=== PATIENT | female | born 1980 | race Caucasian/White ===

== ENCOUNTER 2019-05-13 08:01 | Inpatient (IN) | payer BC ==
[2019-05-13] MEDS ORDERED: Lactated Ringers 1000 ML Bag* 1,000 ML IV ONE ×2 (08:34→12:20)
[2019-05-13] MEDS ORDERED: Penicillin G Potassium IV* 5,000,000 UNITS in NS 0.9% 100 ML* 100 ML IVPB ONE (08:34)
[2019-05-13 08:58] LABS: ABS Basophils 0.1 10^3/ul (0-0.2); ABS Eosinophils 0.1 10^3/ul (0-0.6); ABS Lymphocytes 2.6 10^3/ul (1.0-4.8); ABS Monocytes 0.8 10^3/ul (0-0.8); ABS Neutrophils 7.4 10^3/ul (1.5-7.7); Eosinophil % 0.8 %; Hematocrit 37 % (35-47); Hemoglobin 12.3 g/dL (12.0-16.0); Lymphocyte % 24.1 %; Mean Corpuscular HGB Conc 33 g/dL (31-36); Mean Corpuscular Hemoglobin 26 pg (27-31); Mean Corpuscular Volume 78 fL (80-97); Platelet Count 189 10^3/uL (150-450); Red Blood Count 4.73 10^6 /uL (3.70-4.87); Red Cell Distribution Width 14 % (10-15)
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
[2019-05-13 09:14] LABS: Albumin 3.9 g/dL (3.2-5.2); Albumin/Globulin Ratio 1.3 (1-3); BUN/Creatinine Ratio 15.1 (8-20); Calcium 8.9 mg/dL (8.6-10.3); EGFR African American 107.4 (>60); EGFR Non-African American 88.8 (>60); Globulin 2.9 g/dL (2-4); Potassium 4.1 mmol/L (3.5-5.0); Total Bilirubin 0.3 mg/dL (0.2-1.0); Total Protein 6.8 g/dL (6.4-8.9)
[2019-05-13 09:24] LABS: Urine Benzodiazepine Screen None Detected (None Detect); Urine Opiates Screen None Detected (None Detect)
--- NOTE | 2019-05-13 10:57 | PN ---
Progress Note - Progress Note Date of Service: 05/13/19 Note: S: Pt in side lie position. Breathing well with UCs with bedside support from program paraprofessional, FOB, RNs and CNM. Using nitrous with UCs with moderate relief O: BP 126/71 HR 78 FHT 130bpm. Moderate variability. No decels through UCs by intermittent doptones UCs q 4-5 min VE 7cm/100%/vtx -1, slow leak of clear fluid noted A: IUP at 39-1/7 in labor No evidence of metabolic acidemia GBS +, received first dose of abx prophylaxis P: Close monitoring of maternal/ status. Continue bedside support. Anticipate trial of pushing soon.
[2019-05-13] MEDS ORDERED: fentaNYL* 50 MCG/ML 2 ML VIAL (100 MCG VIAL) ONE (11:39)
[2019-05-13] MEDS ORDERED: Bupivacaine 0.25% SDV PF* 10 ML VIAL INJ ONE (11:39)
[2019-05-13] MEDS ORDERED: Phenylephrine 40 MCG/ML SYRINGE IV PUSH PRN ×2 (12:20)
[2019-05-13] MEDS ORDERED: Famotidine TAB* 20 MG PO PRN (12:20)
[2019-05-13] MEDS ORDERED: EPHEDrine (Pressors)* 50 MG/ML VIAL IV PUSH PRN ×2 (12:20)
[2019-05-13] MEDS ORDERED: Sodium Citrate/Citric Acid* 15 ML UDC PO PRN (12:20)
--- NOTE | 2019-05-13 12:55 | PN ---
Progress Note - Progress Note Date of Service: 05/13/19 Note: S: Pt comfortable s/p ITF placement. She experienced gross rupture to meconium stained fluid O: VSS, afebrile FHT: 130bpm. Moderate variability. +Accels. Isolated decel down to 80bpm x 5 min following ITF placement and SROM, recovered and no further decels noted UCs q 2-3 VE 7-8cm/100%/vtx 0, meconium stained fluid A: IUP at 39-1/7 in labor No evidence of metabolic acidemia since isolated decel recovered GBS +, receiving prophylaxis in labor P: Enc rest. Anticipate trial of pushing soon
[2019-05-13] MEDS ORDERED: Lactated Ringers 1000 ML Bag* 1,000 ML IV SCH ×2 (13:00→15:00)
[2019-05-13] MEDS ORDERED: OBEPIDURAL* 250 ML EPIDURAL SCH (13:00)
[2019-05-13] MEDS ORDERED: Penicillin G Potassium IV* 2,500,000 UNITS in NS 0.9% 100 ML* 100 ML IVPB SCH (14:00)
[2019-05-13] MEDS ORDERED: Oxytocin in LR* 20 UNITS/1,000 ML BAG IVPB ONE (14:18)
[2019-05-13] MEDS ORDERED: Glycerin ADULT SUPP PR PRN (14:33)
[2019-05-13] MEDS ORDERED: Acetaminophen TAB* 325 MG PO PRN (14:33)
--- NOTE | 2019-05-13 14:55 | PROCNOTE ---
[facility]: Delivery Note - Delivery A Date of : 05/13/19 Time of : 13:56 [place] Sex: Female - "Joanna" Score 1 Minute: 5 Score 5 Minutes: 7 - 9 at 10 min Gestational Age in Weeks and Days at Delivery: 39 Weeks and 1 Days Delivery Method: Spontaneous Vaginal Labor: Spontaneous Did Patient attempt ?: N/A, No Previous Amniotic Fluid: Meconium Estimated Blood Loss: 400 Anesthesia/Analgesia: ITF/Spinal for Labor - placed by Dr. Muñoz, Nitrous-Labor Delivered By: Connie Centeno - Nursery Level of Nursery: Regular/Bedside - Perineum Perineal Injury: 1st Degree - repaired with 3-0 Rapide under local infiltration 1% lidocaine. Pt tolerated well Perineal Repair: By Delivering Practioner - Events Delivery Events of Note: Pitocin Only After Delivery - Additional Delivery Notes Additional Delivery Notes: Pt admitted in labor with expected progression to complete. Length of active phase 6 ours, 36 min. Pushed x 17 min. liveborn female. Slow, controlled delivery of head. OA to REID. Tight nuchal cord noted. Unable to reduce. Tight transverse shoulders delivered in [place] with strong maternal push. somersaulted through cord. [place] initially stunned. Cord milked, clamped x 2 and cut. to warmer for evaluation by special care nurse. Apgars 5/7/9. Spontaneous delivery intact placenta. Trailing membranes teased out with a [place] clamp. Appeared complete. Fundus firm to massage. Persistent trickle of bleeding persisted. IV pitocin infusing. Bleeding resolved. Repair as above. EBL 400mL. At time of note mother and in stable condition. Planning to breast feed.
[2019-05-13] MEDS ORDERED: Oxytocin in LR* 20 UNITS/1,000 ML BAG IVPB SCH (15:00)
[2019-05-13] MEDS: Citalopram TAB* 10 MG PO SCH (15:15)
[2019-05-13] MEDS: Ibuprofen TAB* 600 MG PO SCH ×2 (18:04→18:27)
[2019-05-13] MEDS: Dibucaine 1% 28.35 GM TUBE PR PRN (18:04)
[2019-05-13] MEDS: Witch Hazel PAD* JAR TOPICAL PRN (18:04)
[2019-05-13] MEDS: Docusate CAP* 100 MG PO SCH (20:23)
[2019-05-14] MEDS: Ibuprofen TAB* 600 MG PO SCH ×4 (00:48→17:04)
[2019-05-14] MEDS: Citalopram TAB* 10 MG PO SCH (08:04)
[2019-05-14] MEDS: Docusate CAP* 100 MG PO SCH ×3 (08:06→20:56)
[2019-05-14 08:44] LABS: ABS Basophils 0.1 10^3/ul (0-0.2); ABS Lymphocytes 2.2 10^3/ul (1.0-4.8); ABS Monocytes 0.9 10^3/ul (0-0.8); ABS Neutrophils 11.1 10^3/ul (1.5-7.7); Eosinophil % 0.3 %; Hematocrit 28 % (35-47); Hemoglobin 9.3 g/dL (12.0-16.0); Lymphocyte % 15.6 %; Mean Corpuscular HGB Conc 33 g/dL (31-36); Mean Corpuscular Hemoglobin 26 pg (27-31); Mean Corpuscular Volume 78 fL (80-97); Platelet Count 152 10^3/uL (150-450); Red Blood Count 3.56 10^6 /uL (3.70-4.87); Red Cell Distribution Width 14 % (10-15); White Blood Count 14.3 10^3/uL (3.5-10.8)
[2019-05-14] MEDS: Ferrous Gluconate TAB* 324 MG TAB PO SCH ×2 (08:58→20:56)
--- NOTE | 2019-05-14 15:29 | PTEDU ---
Patient Name: ALEJANDRA AGRAWAL TANJAALEJANDRA selected video: Follow Me Mum: [facility] to Successful to view on 05/14/2019 at 3:27:32 PM [id number]
[2019-05-14] MEDS: Dibucaine 1% 28.35 GM TUBE PR PRN (17:04)
[2019-05-14] MEDS: Witch Hazel PAD* JAR TOPICAL PRN (17:04)
[2019-05-15] MEDS: Ibuprofen TAB* 600 MG PO SCH ×4 (00:14→15:52)
[2019-05-15] MEDS: Simethicone TAB* 80 MG TAB.CHEW PO SCH (08:11)
[2019-05-15] MEDS: Docusate CAP* 100 MG PO SCH ×2 (08:22→14:14)
[2019-05-15] MEDS: Ferrous Gluconate TAB* 324 MG TAB PO SCH (08:22)
[2019-05-15] MEDS: Citalopram TAB* 10 MG PO SCH (08:22)
[2019-05-15 08:56] VITALS: BP 139/67
[2019-05-15] MEDS ORDERED: Influenza VAC *QUAD* 2019-20* 0.5 ML SYRINGE IM ONE (09:00)
== END 2019-05-15 17:40 | disposition home or self-care (01) | DRG 560 ==
LOC: MCHOBOUT 08:01 → MCHOB 08:42
PROVIDERS: ADMIT Midwife; ATTEND Midwife
PROC: 10E0XZZ Delivery of Products of Conception, External Approach (ICD-10-PCS; principal; 2019-05-13)
PROC: 0HQ9XZZ Repair Perineum Skin, External Approach (ICD-10-PCS; 2019-05-13)
DX: O99.824 Streptococcus B carrier state complicating childbirth (principal); Z37.0 Single live birth; O70.0 First degree perineal laceration during delivery; O77.0 Labor and delivery complicated by meconium in amniotic fluid; O99.344 Other mental disorders complicating childbirth; F41.8 Other specified anxiety disorders; O69.81X0 Labor and delivery complicated by cord around neck, without compression, not applicable or unspecified; O90.81 Anemia of the puerperium; D64.9 Anemia, unspecified; Z3A.39 39 weeks gestation of pregnancy
CPT/HCPCS: 36415; 80053; 80307; 84550; 85025; 86850; 86900; 86901; 90686; A9270-GY; J2540; J3010; J3490

== ENCOUNTER 2019-05-19 20:52 | Emergency (ER) | payer BC ==
[2019-05-19] MEDS ORDERED: NS 0.9% 1000 ML** 1,000 ML IV ONE ×2 (21:27→22:23)
[2019-05-19 21:47] LABS: ABS Basophils 0.1 10^3/ul (0-0.2); ABS Eosinophils 0.4 10^3/ul (0-0.6); ABS Lymphocytes 2.3 10^3/ul (1.0-4.8); ABS Monocytes 0.8 10^3/ul (0-0.8); ABS Neutrophils 8.1 10^3/ul (1.5-7.7); Eosinophil % 3.5 %; Hematocrit 33 % (35-47); Hemoglobin 10.6 g/dL (12.0-16.0); Lymphocyte % 19.5 %; Mean Corpuscular HGB Conc 32 g/dL (31-36); Mean Corpuscular Hemoglobin 26 pg (27-31); Mean Corpuscular Volume 80 fL (80-97); Mean Platelet Volume 8.6 fL (7.4-10.4); Nucleated Red Blood Cells % 0.1; Platelet Count 318 10^3/uL (150-450); Red Blood Count 4.11 10^6 /uL (3.70-4.87); Red Cell Distribution Width 15 % (10-15); White Blood Count 11.7 10^3/uL (3.5-10.8)
[2019-05-19 21:57] LABS: Activated Partial Thrombo Time 34.6 seconds (26.0-38.0); INR 0.91 (0.82-1.09)
[2019-05-19 22:05] LABS: Albumin 3.5 g/dL (3.2-5.2); Albumin/Globulin Ratio 1.2 (1-3); BUN/Creatinine Ratio 27.9 (8-20); EGFR African American 132.1 (>60); EGFR Non-African American 109.2 (>60); Globulin 2.9 g/dL (2-4); Potassium 3.9 mmol/L (3.5-5.0); Total Bilirubin 0.2 mg/dL (0.2-1.0); Total Protein 6.4 g/dL (6.4-8.9)
--- NOTE | 2019-05-19 22:29 | ED ---
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 She notes that she gave 2 days ago and began experiencing abd pain with passage of small blood clots. Today she continued to have abd pain but was passing larger blood clots. She took 400 mg of ibuprofen earlier today. She rates her current pain severity a 3/10. No aggravating or alleviating factors noted. She also denies fever, vomiting, nausea, dizziness, or lightheadedness. - History of Current Complaint Chief Complaint: EDVaginalBleeding Time Seen by Provider: 05/19/19 21:26 Stated Complaint: "PASSING BLOOD CLOTS POST DELIVERY PER PT" Hx Obtained From: Patient Onset/Duration: Started Days Ago Timing: Constant, Lasting Days Severity: Mild Current Severity: Mild Pain Intensity: 3 Location of Pain: Diffuse Associated Signs and Symptoms: Positive: Abdominal Pain, Other: - neg - dizziness, lightheadedness. Negative: Nausea, Vomiting, Fever Additional Signs & Symptoms: Positive: Vaginal Bleeding - Allergy/Home Medications Allergies/Adverse Reactions: Allergies Allergy/AdvReac Type Severity Reaction Status Date / Time No Known Allergies Allergy Verified 05/19/19 20:56 PMH/Surg Hx/FS Hx/Imm Hx Psychiatric History: Reports: Hx Anxiety - taking medication, Hx Depression - taking medication Denies: Hx Attention Deficit Hyperactivity Disorder, Hx Eating Disorder, Hx Panic Disorder, Hx Post Traumatic Stress Disorder, Hx Inpatient Treatment, Hx Community Mental Health Tx, Hx Schizophrenia, Hx Bipolar Disorder, Hx Suicide Attempt, Hx of Violent Episodes Against Others, Hx Substance Abuse, Other Psychiatric Issues/Disorders Infectious Disease History: Yes Infectious Disease History: Denies: Traveled Outside the [place] in Last 30 Days - Social History Alcohol Use: Rare Substance Use Type: Reports: None Smoking Status (MU): Never Smoked Tobacco Review of Systems - ROS Summary Review of Systems Summary: Home Medications Medication Instructions Recorded Confirmed Type Vitamin TAB* 1 tab PO DAILY 05/13/19 05/13/19 History Citalopram TAB* [Celexa TAB*] 30 mg PO DAILY tab 05/15/19 Rx Docusate CAP* [Colace Cap*] 100 mg PO TID cap 05/15/19 Rx Ferrous Gluconate TAB* [Fergon 324 mg PO DAILY #30 tab 05/15/19 Rx TAB*] Ibuprofen TAB* [Motrin TAB* 600 MG] 600 mg PO Q6H tab 05/15/19 Rx Positive: Fever Positive: Abdominal Pain. Negative: Vomiting, Nausea Positive: other - pos - vaginal bleeding Neurological: Other - neg - dizziness, lightheadedness All Other Systems Reviewed And Are Negative: Yes Physical Exam - Summary Physical Exam Summary: General: Well-developed, Well-nourished female. No acute distress. HEENT: Normocephalic, Atraumatic. Eyes: Conjuctiva normal, PERRL. Ears: TMs within normal limits. Nares: (-) discharge, (-) erythema. Oropharynx: Clear, mucous membranes moist, (-) exudates. Neck: Soft, FROM, (-) lymphadenopathy, (-) thyromegaly, (-) JVD. Cardiovascular: Normal sinus rhythm, (-) murmur. Lungs: Clear to auscultation bilaterally (-) wheezes, (-) rales, (-) rhonchi. Abdomen: Soft, non-tender, non-distended, (-) organomegaly, normal bowel sounds. Back: (-) CVA tenderness Extremities: No edema. Skin: Warm, dry, (-) rash. Neuro: Alert and oriented x3, no focal deficits. Psychiatric: Mood normal, affect normal. Triage Information Reviewed: Yes Vital Signs On Initial Exam: Initial Vitals Temp Pulse Resp BP Pulse Ox 98.8 F 85 15 136/102 98 05/19/19 20:55 05/19/19 20:55 05/19/19 20:55 05/19/19 20:55 05/19/19 20:55 Vital Signs Reviewed: Yes Procedures - Sedation Patient Received Moderate/Deep Sedation with Procedure: No Diagnostics - Vital Signs Vital Signs Temp Pulse Resp BP Pulse Ox 05/19/19 20:55 98.8 F 85 15 136/102 98 - Laboratory Lab Results: Lab Results 05/19/19 05/19/19 05/19/19 Range/Units 21:38 21:38 21:38 WBC 11.7 H (3.5-10.8) 10^3/uL RBC 4.11 (3.70-4.87) 10^6 /uL Hgb 10.6 L (12.0-16.0) g/dL Hct 33 L (35-47) % MCV 80 (80-97) fL MCH 26 L (27-31) pg MCHC 32 (31-36) g/dL RDW 15 (10-15) % Plt Count 318 (150-450) 10^3/uL MPV 8.6 (7.4-10.4) fL Neut % (Auto) 69.4 % Lymph % (Auto) 19.5 % [place] % (Auto) 7.0 % Eos % (Auto) 3.5 % Baso % (Auto) 0.6 % Absolute Neuts (auto) 8.1 H (1.5-7.7) 10^3/ul Absolute Lymphs (auto) 2.3 (1.0-4.8) 10^3/ul Absolute Monos (auto) 0.8 (0-0.8) 10^3/ul Absolute Eos (auto) 0.4 (0-0.6) 10^3/ul Absolute Basos (auto) 0.1 (0-0.2) 10^3/ul Absolute Nucleated RBC 0.0 10^3/ul Nucleated RBC % 0.1 INR (Anticoag Therapy) 0.91 (0.82-1.09) APTT 34.6 (26.0-38.0) seconds Sodium 139 (135-145) mmol/L Potassium 3.9 (3.5-5.0) mmol/L Chloride 107 (101-111) mmol/L Carbon Dioxide 24 (22-32) mmol/L Anion Gap 8 (2-11) mmol/L BUN 17 (6-24) mg/dL Creatinine 0.61 (0.51-0.95) mg/dL Est GFR ( Amer) 132.1 (>60) Est GFR (Non-Af Amer) 109.2 (>60) BUN/Creatinine Ratio 27.9 H (8-20) Glucose 129 H (70-100) mg/dL Lactic Acid (0.5-2.0) mmol/L Calcium 9.0 (8.6-10.3) mg/dL Total Bilirubin 0.20 (0.2-1.0) mg/dL AST 18 (13-39) U/L ALT 26 (7-52) U/L Alkaline Phosphatase 89 (34-104) U/L Total Protein 6.4 (6.4-8.9) g/dL Albumin 3.5 (3.2-5.2) g/dL Globulin 2.9 (2-4) g/dL Albumin/Globulin Ratio 1.2 (1-3) 05/19/19 Range/Units 21:38 WBC (3.5-10.8) 10^3/uL RBC (3.70-4.87) 10^6 /uL Hgb (12.0-16.0) g/dL Hct (35-47) % MCV (80-97) fL MCH (27-31) pg MCHC (31-36) g/dL RDW (10-15) % Plt Count (150-450) 10^3/uL MPV (7.4-10.4) fL Neut % (Auto) % Lymph % (Auto) % [place] % (Auto) % Eos % (Auto) % Baso % (Auto) % Absolute Neuts (auto) (1.5-7.7) 10^3/ul Absolute Lymphs (auto) (1.0-4.8) 10^3/ul Absolute Monos (auto) (0-0.8) 10^3/ul Absolute Eos (auto) (0-0.6) 10^3/ul Absolute Basos (auto) (0-0.2) 10^3/ul Absolute Nucleated RBC 10^3/ul Nucleated RBC % INR (Anticoag Therapy) (0.82-1.09) APTT (26.0-38.0) seconds Sodium (135-145) mmol/L Potassium (3.5-5.0) mmol/L Chloride (101-111) mmol/L Carbon Dioxide (22-32) mmol/L Anion Gap (2-11) mmol/L BUN (6-24) mg/dL Creatinine (0.51-0.95) mg/dL Est GFR ( Amer) (>60) Est GFR (Non-Af Amer) (>60) BUN/Creatinine Ratio (8-20) Glucose (70-100) mg/dL Lactic Acid 1.3 (0.5-2.0) mmol/L Calcium (8.6-10.3) mg/dL Total Bilirubin (0.2-1.0) mg/dL AST (13-39) U/L ALT (7-52) U/L Alkaline Phosphatase (34-104) U/L Total Protein (6.4-8.9) g/dL Albumin (3.2-5.2) g/dL Globulin (2-4) g/dL Albumin/Globulin Ratio (1-3) Result Diagrams: 05/19/19 21:38 05/19/19 21:38 Lab Statement: Any lab studies that have been ordered have been reviewed, and results considered in the medical decision making process. Re-Evaluation - Re-Evaluation First Eval Re-Evaluation Time: 00:49 Comment: On exam of her area, the pt had a large 5 cm sac of tissue containing blood protruding from vaginal area, tissue was teased out with ring forceps. She continued to have moderate tenderness of her uterus. Second Eval Re-Evaluation Time: 01:21 Comment: I have discussed results with the patient and (Sx) is resolved. Discussed symptoms that warrant immediate return to ED. 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 Test results normal except for WBC @ 11.7 , Hgb 10.6, Hct 33, MCH 26, Absolute Neuts 8.1, BUN/Creatinine 27.9, Glucose 129 , Ur Protein 1+, Ur Blood 3+, Ur Leukocyte Esterase Trace, Ur WBC 2+, Ur RBC 3+ , Ur Squamous Epith Cells Present. In the ED course pt was given 2000 mls fluids. Final Dx is retained products of conception. Pt will be discharged home with PCP follow up. Pt is agreeable with this plan. - Diagnoses Provider Diagnoses: Retained products of conception - Physician Notifications Discussed Care Of Patient With: Sp Gary JR - Dr. Gary performed a bedside US and exam. He feels that there is no longer any product and pt can be discharged. Time Discussed With Above Provider: 01:00 Discharge ED - Sign-Out/Discharge Documenting (check all that apply): Patient Departure - discharge - Discharge Plan Condition: Stable Disposition: HOME Patient Education Materials: Bleeding (ED) Referrals: Kandace Rodríguez NP [Primary Care Provider] - 3 Days Additional Instructions: Please follow up with your primary care physician within three days. Please return to ED for any new or worsening symptoms. - Billing Disposition and Condition Condition: STABLE Disposition: Home - Attestation Statements Document Initiated by Scribe: Yes Documenting Scribe: Rosendo Odonnell Provider For Whom Scribe is Documenting (Include Credential): June Mckeon MD Scribe Attestation: I, Rosendo Odonnell, scribed for June Mckeon MD on 05/20/19 at 0554. Scribe Documentation Reviewed: Yes Provider Attestation: The documentation as recorded by the scribe, Rosendo Odonnell accurately reflects the service I personally performed and the decisions made by me, June Mckeon MD Status of Scribe Document: Viewed
[2019-05-20] LABS: Urine Appearance Clear; Urine Bacteria Absent (Absent); Urine Bilirubin Negative (Negative); Urine Blood 3+ (Negative); Urine Color Yellow; Urine Glucose Negative (Negative); Urine Ketones Negative (Negative); Urine Nitrite Negative (Negative); Urine Protein 1+(30 mg/dL) (Negative); Urine Red Blood Cell 3+(>10/hpf) (Absent); Urine Specific Gravity 1.029 (1.010-1.030); Urine Squamous Epithelial Cell Present (Absent); Urine Urobilinogen Negative (Negative); Urine White Blood Cell 2+(11-20/hpf) (Absent)
[2019-05-20 01:46] VITALS: BP 128/92
[2019-05-20] MEDS ORDERED: methylPREDNISolone 125 MG* 2 ML VIAL IV ONE (01:55)
[2019-05-20] MEDS ORDERED: Ibuprofen TAB* 600 MG PO SCH (02:00)
[2019-05-20] MEDS ORDERED: PRENATAL VITAMIN PO SCH (09:00)
[2019-05-20] MEDS ORDERED: Docusate CAP* 100 MG PO SCH (09:00)
[2019-05-20] MEDS ORDERED: Ferrous Gluconate TAB* 324 MG TAB PO SCH (09:00)
[2019-05-20] MEDS ORDERED: Citalopram TAB* 10 MG PO SCH (09:00)
== END 2019-05-20 01:42 | disposition home or self-care (01) ==
LOC: ED 20:52
DX: O72.2 Delayed and secondary postpartum hemorrhage (principal); Z37.0 Single live birth; N93.8 Other specified abnormal uterine and vaginal bleeding; R10.9 Unspecified abdominal pain; F41.9 Anxiety disorder, unspecified; F32.9 Major depressive disorder, single episode, unspecified; R50.9 Fever, unspecified
CPT/HCPCS: 36415; 80053; 81003; 81015; 83605; 85025; 85610; 85730; 87077; 87086; 96360; 96361; 99282